=== PATIENT | female | born 1980 | race Caucasian/White ===

== ENCOUNTER 2019-11-12 02:37 | Emergency (ER) | payer OTHER ==
[~2019-11-12] VITALS: Ht 165.1 cm; Wt 56.7 kg
[2019-11-12] MEDS ORDERED: REMICADE 1100 MG/VIA (02:56)
[2019-11-12] MEDS ORDERED: EFFEXOR 5050 MG/1 T1 PO (03:03)
[2019-11-12] MEDS ORDERED: SUPER THERAVIT1 EACH PO (03:03)
[2019-11-12] MEDS ORDERED: AZATHIOPRINE50 MG PO (03:03)
[2019-11-12 03:05] LABS: URINE BILIRUBIN NEGATIVE (Negative); URINE BLOOD 3+ (Negative); URINE CLARITY SL CLOUDY; URINE COLOR YELLOW; URINE GLUCOSE-RANDOM NEGATIVE (Negative); URINE KETONES NEGATIVE (Negative); URINE LEUKOCYTES-REFLEX NEGATIVE (Negative); URINE NITRITE-REFLEX NEGATIVE (Negative); URINE PROTEIN TRACE (Negative); URINE SPECIFIC GRAVITY >= 1.030 (1.005-1.030); URINE UROBILINOGEN 0.2 E.U./dl (0.2-1.0)
[2019-11-12 03:13] LABS: CRYSTALS None Seen /LPF (None Seen); SQUAMOUS >10 Many /LPF (0-3); URINE RBC >20 Many /HPF (0-2)
[2019-11-12 03:14] LABS: BACTERIA-REFLEX >30 Many /HPF (None Seen); CASTS None Seen /LPF (None Seen)
[2019-11-12 03:15] LABS: URINE WBC-REFLEX 0-5 Rare /HPF (0-5)
[2019-11-12 03:27] LABS: AMP/METHAMP Negative (Negative); BARBITURATES Negative (Negative); BENZODIAZEPINES Negative (Negative); COCAINE Negative (Negative); METHADONE Negative (Negative); OPIATES Negative (Negative); PCP Negative (Negative); THC POSITIVE (Negative)
[2019-11-12 03:48] LABS: ABSOLUTE EOSINOPHILS 0.1 thou/uL (0.0-0.7); ABSOLUTE LYMPHOCYTES 0.7 thou/uL (0.8-5.3); ABSOLUTE MONOCYTES 0.5 thou/uL (0.0-1.2); BASOPHILS 0.4 %; EOSINOPHILS 1.5 %; HEMATOCRIT 31.2 % (37.0-47.0); HEMOGLOBIN 10.4 gm/dL (12.0-15.0); LYMPHOCYTES 9.5 %; MCHC 33.4 g/dL (28.0-37.0); MCV 80.8 fL (80.0-100.0); MONOCYTES 7.1 %; MPV 7.6 fl. (7.2-11.1); NUCLEATED RBCS 0 /100WBC; PLATELET COUNT* 366 thou/uL (150-400); POLYS 81.5 %; RBC 3.86 mil/uL (4.20-5.00); RDW-CV 15.4 % (10.5-14.5); WBC 7.4 thou/uL (4.0-11.0)
[2019-11-12 03:56] LABS: CREATININE 0.7 mg/dL (0.6-1.3); POTASSIUM 3.4 mmol/L (3.5-5.1)
[2019-11-12 04:05] LABS: ALBUMIN 2.9 g/dL (3.4-5.0); TOTAL BILIRUBIN 0.3 mg/dL (<0.1-1.0); TOTAL PROTEIN 6.3 g/dL (6.4-8.2)
[2019-11-12 05:00] VITALS: BP 105/75
== END 2019-11-12 05:00 | disposition short-term general hospital (02) ==
LOC: M.ERS 02:37
PROVIDERS: Emergency Medicine
DX: N20.1 Calculus of ureter (principal); R11.2 Nausea with vomiting, unspecified; K50.90 Crohn's disease, unspecified, without complications; Z79.899 Other long term (current) drug therapy

== ENCOUNTER 2020-12-31 13:27 | Inpatient (IN) | payer OTHER ==
[~2020-12-31] VITALS: Ht 162.6 cm; Wt 55.8 kg
[~2020-12-31 13:27] MED LIST: AZATHIOPRINE50 MG PO; EFFEXOR 5050 MG/1 T1 PO; REMICADE 1100 MG/VIA; SUPER THERAVIT1 EACH PO
[2020-12-31 13:50] VITALS: BP 118/89
[2020-12-31] MEDS ORDERED: KLONOPIN0.5 MG PO (13:54)
[2020-12-31 14:55] LABS: HEMATOCRIT 44.4 % (37.0-47.0); HEMOGLOBIN 14.7 gm/dL (12.0-15.0); MCH 29.6 pg (26.0-34.0); MCHC 33.1 g/dL (28.0-37.0); MCV 89.4 fL (80.0-100.0); MPV 7.5 fl. (7.2-11.1); NUCLEATED RBCS 0 /100WBC; PLATELET COUNT* 397 thou/uL (150-400); RBC 4.96 mil/uL (4.20-5.00); RDW-CV 14.3 % (10.5-14.5); WBC 14.3 thou/uL (4.0-11.0)
[2020-12-31 15:01] LABS: URINE BILIRUBIN NEGATIVE (Negative); URINE BLOOD TRACE (Negative); URINE CLARITY CLEAR; URINE COLOR YELLOW; URINE GLUCOSE-RANDOM NEGATIVE (Negative); URINE KETONES TRACE (Negative); URINE LEUKOCYTES-REFLEX NEGATIVE (Negative); URINE NITRITE-REFLEX NEGATIVE (Negative); URINE PROTEIN TRACE (Negative); URINE SPECIFIC GRAVITY 1.025 (1.005-1.030); URINE UROBILINOGEN 0.2 E.U./dl (0.2-1.0)
[2020-12-31 15:01] LABS: CALCIUM 8.9 mg/dL (8.5-10.1); CREATININE 0.7 mg/dL (0.6-1.3); POTASSIUM 4.4 mmol/L (3.5-5.1)
[2020-12-31 15:05] LABS: ALBUMIN 3.6 g/dL (3.4-5.0); TOTAL BILIRUBIN 0.3 mg/dL (<0.1-1.0); TOTAL PROTEIN 8.2 g/dL (6.4-8.2)
[2020-12-31 15:09] LABS: AMP/METHAMP Negative (Negative); BARBITURATES Negative (Negative); BENZODIAZEPINES Negative (Negative); COCAINE Negative (Negative); METHADONE Negative (Negative); OPIATES Negative (Negative); PCP Negative (Negative); THC POSITIVE (Negative)
[2020-12-31 15:31] LABS: ABSOLUTE NEUTROPHILS 13.3 thou/uL (1.6-8.1); PLATELET ESTIMATE ADEQUATE
[2020-12-31 22:58] VITALS: BP 114/72
[2021-01-01 03:50] LABS: ABSOLUTE LYMPHOCYTES 0.4 thou/uL (0.8-5.3); ABSOLUTE MONOCYTES 0.1 thou/uL (0.0-1.2); BASOPHILS 0.1 %; HEMATOCRIT 37.1 % (37.0-47.0); HEMOGLOBIN 13.2 gm/dL (12.0-15.0); LYMPHOCYTES 4.7 %; MCH 30.2 pg (26.0-34.0); MCHC 35.6 g/dL (28.0-37.0); MONOCYTES 0.9 %; MPV 7.6 fl. (7.2-11.1); NUCLEATED RBCS 0 /100WBC; PLATELET COUNT* 362 thou/uL (150-400); POLYS 94.3 %; RBC 4.36 mil/uL (4.20-5.00); RDW-CV 14.2 % (10.5-14.5); WBC 8.5 thou/uL (4.0-11.0)
[2021-01-01 04:05] LABS: CALCIUM 8.6 mg/dL (8.5-10.1); CREATININE 0.6 mg/dL (0.6-1.3); PHOSPHORUS* 1.8 mg/dL (2.5-4.9)
[2021-01-01 07:55] VITALS: BP 108/73
--- NOTE | 2021-01-01 15:31 | CON ---
[address] [address] CONSULTATION Name: DAMIÁN PEPPER Room: [address] IN M.R.#: [id number] Admission: 12/31/20 Attend Phys: Yeny Jones MD Discharge: Date of : 82 Report #: [id number] THIS REPORT FOR: cc: Carmen Gallegos MD, MaryLynne D. MD Namin, Farid M. MD ~ DOC #: [id number] cc: Eli Gallegos MD, Dr. Brittany García, [facility] DATE OF CONSULTATION: 01/01/2021 Please note at the time of this dictation, the patient was seen and physically examined by myself. REASON FOR CONSULTATION: Abdominal pain, Crohn's disease. HISTORY OF PRESENT ILLNESS: This is a 40-year-old female who was diagnosed with Crohn's disease about 5 years ago; however, she had been having issues for the last 13 years. It took them many years to figure out what was wrong with her until she was able to locate her mom and find out her past medical history which was significant for Crohn's disease on her side of the family as well as colon cancer. The patient found out she had Crohn's disease. It is in her small bowel. She states she has been having abdominal pain for years, and despite that, she was started immediately on Remicade. She does not know if it is 5 mg or 10 mg. She was started every 7 weeks and has been maintained on that for the last 5 years. She states she always has some sort of abdominal discomfort, and when she has ever thought she started having pain, they would give her some steroids to help prevent the pain from worsening. The patient had been taking Remicade every 7 weeks; however, she had labs drawn 2 weeks ago prior to her infusion which was changed to Inflectra, a biosimilar, because the insurance would no longer pay for the Remicade. The patient states on Thursday, she started having worsening of her abdominal pain with nausea and vomiting which continued from Thursday evening into Thursday. She had been vomiting for several hours and the worst pain that she had had in quite some time prompting her to come in to be seen. She states she denied any bright red blood or any coffee-ground emesis. She states her bowel habits during all of this when she was vomiting, she had a normal stool. Normally her bowels may move a couple of times a day and it can vary from being normal formed stool to diarrhea. She denied any bright red blood or any melanotic stool at that time. The patient also states that she was told regarding her labs that some of her numbers were very high. She does not recall what they are. We will attempt to get all of those records from her Dr. so we can have a better idea of what is going on with [place] [address] CONSULTATION Name: HOPLANDDAMIÁN N Room: [address] IN ..#: [id number] Admission: 12/31/20 Attend Phys: Yeny Jones MD Discharge: Date of : 82 Report #: [id number] ALLERGIES: No known drug allergies. MEDICATIONS FROM HOME: Include: 1. Effexor. 2. Klonopin. 3. Azathioprine 50 mg two tablets daily at night. 4. Recently switched to Inflectra every 7 weeks, dosage unclear. PAST MEDICAL HISTORY: Crohn's. PAST SURGICAL HISTORY: Negative. FAMILY HISTORY: Maternal grandmother, Crohn's and colon cancer. Maternal aunt, Crohn's. SOCIAL HISTORY: . Denies any alcohol or tobacco use, but does smoke marijuana. REVIEW OF SYSTEMS: A 12-point review of systems is essentially negative except what is mentioned in the HPI. PHYSICAL EXAMINATION: VITAL SIGNS: Temperature is 36.2, pulse 85, respirations 16, blood pressure 114/72. HEART: Regular rate and rhythm. LUNGS: Clear. ABDOMEN: Soft. Positive bowel sounds in all 4 quadrants with tenderness noted in the upper and right lower quadrant area. LABORATORY DATA: Hemoglobin 13.2, white count elevated on admission at 14.3 is down to 8.5, platelets are 362. ESR is 10. CRP is 2.2. GFR is 111. LFTs are normal. She tested positive for THC. IMAGING: CT showed luminal narrowing in the distal ileum and a high-grade, if not complete, bowel obstruction in the upper bowels that are fluid filled and dilated. IMPRESSION: 1. Nausea and vomiting. 2. Abdominal pain secondary to small bowel obstruction, likely high grade. 3. Crohn's disease diagnosed 5 years ago. 4. Leukocytosis. 5. Family history of Crohn's and colon cancer on maternal side. [address] [address] CONSULTATION Name: HOPLAND,DAMIÁN N Room: [address] IN .R.#: [id number] Admission: 12/31/20 Attend Phys: Yeny Jones MD Discharge: Date of : 82 Report #: [id number] PLAN: 1. Medical records to obtain all from at [facility] including recent [facility] labs that were drawn. 2. Solu-Medrol 62.5 mg every 8 hours. 3. Ciprofloxacin 500 IV b.i.d. 4. Abdominal x-ray pending this morning. 5. Further recommendations to be made once the records and the above have been noted and reviewed by Dr. Veloz. Sarah Veloz MD JLB/SEN <ELECTRONICALLY SIGNED> By: Sarah Veloz MD 01/01/21 1531 [id number] Veloz MD /nt
[2021-01-01 17:12] VITALS: BP 104/61
[2021-01-01 21:00] VITALS: BP 96/60
[2021-01-02 08:00] VITALS: BP 100/60
[2021-01-02 12:24] VITALS: BP 100/60
[2021-01-02] MEDS ORDERED: PREDNISONE 10 M10 MG PO (12:42)
[2021-01-02] MEDS ORDERED: TRAMADOL 50 MG50 MG PO (15:18)
[2021-01-02 16:38] VITALS: BP 100/60
== END 2021-01-02 15:10 | disposition home or self-care (01) | DRG 387 ==
LOC: M.ERS 13:27 → M.ORTHSURG 19:41 → M.TBA-ER 19:41 → M.ORTHSURG 23:08
PROVIDERS: Nurse Practitioner Family; Surgery; ADMIT Internal Medicine; ATTEND Internal Medicine
DX: K50.912 Crohn's disease, unspecified, with intestinal obstruction (principal); D72.829 Elevated white blood cell count, unspecified; F41.9 Anxiety disorder, unspecified; F17.200 Nicotine dependence, unspecified, uncomplicated; Z20.822 Contact with and (suspected) exposure to COVID-19; Z80.0 Family history of malignant neoplasm of digestive organs; Z79.899 Other long term (current) drug therapy; Z90.710 Acquired absence of both cervix and uterus